=== PATIENT | male | born 1990 | race Hispanic/Latino ===

== ENCOUNTER 2016-07-16 23:46 | Emergency (ER) | payer SELFPAY ==
[2016-07-17] MEDS ORDERED: Benzonatate 100 MG CAP ONE (00:12)
[2016-07-17] MEDS ORDERED: Azithromycin 250 MG TAB ONE (00:12)
== END 2016-07-17 00:18 | disposition home or self-care (01) ==
LOC: BURERS 23:46
DX: J06.9 Acute upper respiratory infection, unspecified (principal); Z87.891 Personal history of nicotine dependence
CPT/HCPCS: 99283

== ENCOUNTER 2017-11-29 08:06 | Emergency (ER) | payer SELFPAY | END 2017-11-29 09:24 | disposition home or self-care (01) | LOC: BURERS 08:06 | DX: H61.21 Impacted cerumen, right ear (principal); Z87.891 Personal history of nicotine dependence | CPT/HCPCS: 99282 ==

== ENCOUNTER 2018-04-02 20:43 | Emergency (ER) | payer SELFPAY ==
[2018-04-02] MEDS ORDERED: Sulfameth/Trimethoprim DS 800-160mg TAB ONE (21:30)
[2018-04-02] MEDS ORDERED: traMADol HCl 50 MG TAB ONE (21:30)
== END 2018-04-02 21:40 | disposition home or self-care (01) ==
LOC: BURERS 20:43
DX: L03.031 Cellulitis of right toe (principal); L03.032 Cellulitis of left toe; F17.220 Nicotine dependence, chewing tobacco, uncomplicated
CPT/HCPCS: 99283

== ENCOUNTER 2018-08-14 04:37 | Emergency (ER) | payer SELFPAY ==
[2018-08-14] MEDS ORDERED: Clindamycin 150 MG CAP ONE (04:49)
[2018-08-14] MEDS ORDERED: Ibuprofen 200 MG TAB ONE (04:49)
== END 2018-08-14 04:50 | disposition home or self-care (01) ==
LOC: BURERS 04:37
DX: K02.9 Dental caries, unspecified (principal); F17.220 Nicotine dependence, chewing tobacco, uncomplicated
CPT/HCPCS: 99282

== ENCOUNTER 2021-03-28 14:15 | Emergency (ER) | payer SELFPAY ==
[2021-03-29 14:57] LABS: SARS-CoV-2 PCR by NAA DETECTED (NotDetected)
== END 2021-03-28 15:57 | disposition home or self-care (01) ==
LOC: BURERS 14:15
DX: U07.1 COVID-19 (principal)
CPT/HCPCS: 87804; 99283; U0003; U0005

== ENCOUNTER 2024-04-15 22:37 | Emergency (ER) | payer OTHER ==
[2024-04-15] MEDS ORDERED: Ketorolac Tromethamine 30 MG (1 mL) VIAL ONE (22:58)
== END 2024-04-15 23:22 ==
LOC: BURERS 22:37 → EEVIPCON 22:37 → BURERS 23:22
DX: R09.1 Pleurisy (principal); I10 Essential (primary) hypertension
CPT/HCPCS: 93005; 96372; 99285; J1885